=== PATIENT | male | born 1980 | race Caucasian/White ===

== ENCOUNTER 2020-10-14 10:01 | Outpatient (CLI) | payer OTHER | END 2020-10-14 10:02 | disposition home or self-care (01) | LOC: DTY/OP 10:01 | PROVIDERS: ATTEND Surgery | DX: E66.01 Morbid (severe) obesity due to excess calories (principal) | CPT/HCPCS: 97802 ==

== ENCOUNTER 2020-11-14 15:12 | Outpatient (CLI) | payer OTHER | END 2020-11-14 15:13 | disposition home or self-care (01) | LOC: DTY/OP 15:12 | PROVIDERS: ATTEND Surgery | DX: E66.01 Morbid (severe) obesity due to excess calories (principal) | CPT/HCPCS: 97802 ==